=== PATIENT | female | born 1995 | race Caucasian/White ===

== ENCOUNTER → 2021-11-27 | Outpatient (CLI) | payer OTHER ==
[2021-11-28 01:25] LABS: ALT 11 U/L (8-44); AST 11 U/L (13-35); African American GFR (CKD) 118.5 (60.0-200.0); Albumin 4.6 g/dL (3.8-4.9); Albumin/Globulin Ratio 1.87 (1.60-3.17); Alkaline Phosphatase 55 U/L (41-126); BUN/Creat Ratio 16.79 Ratio (12.00-20.00); Blood Urea Nitrogen 13.3 mg/dL (9.0-27.0); Calcium 9.6 mg/dL (8.7-10.3); Carbon Dioxide 23.9 mmol/L (20.0-27.5); Chloride 106 mmol/L (96-109); Globulin 2.5 g/dL (1.6-3.3); Glucose 82 mg/dL (70-110); Non-African American GFR(CKD) 102.3 (60.0-200.0); Potassium 4.1 mmol/L (3.5-5.5); Sodium 143 mmol/L (135-145); Total Bilirubin <0.15 mg/dL (0.30-1.20); Total Protein 7.1 g/dL (6.2-8.2)
[2021-11-28 01:50] LABS: Basophils # (A) 0.08 X 10*3/uL (0.00-0.10); Eosinophils # (A) 0.17 X 10*3/uL (0.04-0.35); Eosinophils % (A) 2.1 %; HCT 38.7 % (37.2-46.3); HGB 12.9 g/dL (12.0-15.0); Immature Grans, Automated 0.1 %; Lymphocytes # (A) 2.94 X 10*3/uL (0.90-5.00); Lymphocytes % (A) 36.7 %; MCH 31.2 pg (27.0-32.0); MCHC 33.3 g/dL (32.0-37.0); MCV 93.7 fL (80.0-97.0); Mean Platelet Volume 10.8 fL (9.5-12.2); Monocytes # (A) 0.43 X 10*3/uL (0.20-1.00); Monocytes % (A) 5.4 %; NRBC Per 100 WBC 0 /100 WBCS (0.0-0.0); Neutrophils # (A) 4.39 X 10*3/uL (1.80-7.70); Neutrophils % (A) 54.7 %; Platelet Count 374 X 10*3/uL (140-440); RBC 4.13 X 10*6/uL (4.10-5.20); RDW 12.4 % (11.5-14.5); WBC 8.02 X 10*3/uL (4.50-10.00)
[2021-11-28 05:40] LABS: Anti-Smith Ab Interp NEGATIVE (NEGATIVE); Cyclic Citrull Pep IgG Unit <0.5 U/mL; Cyclic Citrullinated Pep IgG NEGATIVE (NEGATIVE)
== END | disposition home or self-care (01) ==
LOC: LABWHC1 14:20
PROVIDERS: ATTEND Psychiatry & Neurology Neurology
DX: E55.9 Vitamin D deficiency, unspecified (principal); E53.9 Vitamin B deficiency, unspecified; M13.0 Polyarthritis, unspecified; M35.3 Polymyalgia rheumatica; H54.7 Unspecified visual loss; G43.909 Migraine, unspecified, not intractable, without status migrainosus
CPT/HCPCS: 36415; 80053; 82306; 82607; 84207; 84439; 84443; 84481; 85025; 86200; 86235